=== PATIENT | male | born 1970 | race Caucasian/White ===

== ENCOUNTER 2018-05-04 20:27 | Emergency (ER) | payer OTHER ==
[~2018-05-04] VITALS: Ht 185.4 cm; Wt 129.7 kg
[2018-05-04] MEDS ORDERED: LOSARTAN POTAS100 MG PO (20:43)
[2018-05-04] MEDS ORDERED: OXYCODONE HCL5 MG PO (20:43)
[2018-05-04] MEDS ORDERED: ASPIR 8181 MG PO (20:44)
[2018-05-04] MEDS ORDERED: LIPITOR40 MG PO (20:44)
[2018-05-04] MEDS ORDERED: AMLODIPINE BESY10 MG PO (20:44)
[2018-05-04] MEDS ORDERED: LEVOTHYROXINE125 MCG PO (20:45)
[2018-05-04] MEDS ORDERED: METOPROLOL SUCC25 MG PO (20:45)
[2018-05-04] MEDS ORDERED: ULTRAM50 MG PO (20:46)
--- OUTSIDE RECORDS SUMMARY | 2018-05-04 22:16 | XMS ---
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 Matt has no Care Guidelines for this patient. E.DAroldo VISIT COUNT (12 MO.) [facility] NOTE: Visits indicate total known visits. ED/UCC VISIT TRACKING (12 MO.) [facility] COMPLAINT: - POSS KIDNEY STONE 05/03/2018 21:27 [facility] LOKESH Perez TYPE: [facility] INPATIENT VISIT TRACKING (12 MO.) No inpatient visits to display in this time frame [email or web address]
[2018-05-04] MEDS ORDERED: DILAUDID2 MG PO (23:17)
== END 2018-05-04 23:51 | disposition home or self-care (01) ==
LOC: ED 20:27
DX: N13.2 Hydronephrosis with renal and ureteral calculous obstruction (principal); I10 Essential (primary) hypertension; Z88.7 Allergy status to serum and vaccine; Z79.82 Long term (current) use of aspirin; Z79.899 Other long term (current) drug therapy
CPT/HCPCS: 74176; 80053; 81001; 85025; 96374; 96375; 99284; J1170; J1885; J2405